=== PATIENT | female | born 1940 | race Caucasian/White ===

== ENCOUNTER → 2018-03-07 12:06 | Outpatient (CLI) | payer MEDICARE, SELFPAY ==
--- NOTE | 2018-03-07 10:00 | DI.MG.S_ITS ---
Patient Name: JANUSZ CONNOLLY date: 1940 Sex: F Attending Physician: Dorothea Indications: Date: 03/07/2018 12:29 At the request of: CHRISTINE HASSAN Procedure: MM screening mammo BI BILATERAL DIGITAL SCREENING MAMMOGRAM 3D/2D WITH CAD: 03/07/2018 CLINICAL: Routine screening. Comparison is made to exams dated: 06/17/2016 mammogram, 12/17/2014 mammogram, and 12/17/2013 mammogram - [facility]. The tissue of both breasts is predominantly fatty. Current study was also evaluated with a Computer Aided Detection (CAD) system. No new suspicious masses or architectural distortion. There are benign calcifications in both breasts. No significant masses, calcifications, or other findings are seen in either breast. There has been no significant interval change. IMPRESSION: There is no mammographic evidence of malignancy. A 1 year screening mammogram is recommended. This exam was interpreted at Station ID: [id number]. NOTE: For mammograms, a report in lay terms will be sent to the patient. Approximately 15% of breast malignancies will not be visualized mammographically. In the management of a palpable breast mass, a negative mammogram must not discourage biopsy of a clinically suspicious lesion. Electronically Signed By: Rakesh aleman/bethany:03/07/2018 22:07:46 letter sent: Normal Exam ACR BI-RADS Category 2: Benign Finding(s) 3342F
== END ==
PROVIDERS: PCP Family Medicine; Visit Provider Family Medicine
DX: Z12.31 Encounter for screening mammogram for malignant neoplasm of breast (principal); Z78.0 Asymptomatic menopausal state; Z90.722 Acquired absence of ovaries, bilateral; Z87.891 Personal history of nicotine dependence
CPT/HCPCS: 77063; 77067; 77080

== ENCOUNTER → 2021-01-13 12:40 | Outpatient (CLI) | payer MEDICARE, SELFPAY ==
--- NOTE | 2021-01-13 | DI.CT.S_ITS ---
PROCEDURE: CT CHEST WO CON INDICATIONS: Other nonspecific abnormal finding of lung field TECHNIQUE: Noncontrast 5 mm thick sections acquired from the pulmonary apices to the posterior costophrenic angles. 1 mm lung window, 5 mm thick coronal and sagittal and 7 mm axial MIP reformats were then acquired. For radiation dose reduction, the following was used: automated exposure control, adjustment of mA and/or kV according to patient size. Radiation dose: 79.6 mGycm. COMPARISON: [facility], CT, CT LOW DOSE LUNG CA SCREENING, 06/16/2018, 12:16. FINDINGS: Image quality: Excellent. Lungs and pleura: Small lung nodules are present. Nodule 1: 2 mm; right upper lobe, lateral; series 3, image 78; unchanged. Nodule 2: 2 mm; right upper lobe; anterior lateral; series 3, image 120; unchanged. Nodule 3: 2 mm; left lower lobe; series 3, image 164; unchanged. Mild emphysema. Left basilar atelectasis. No acute air space opacities. No pleural effusions or pneumothorax. Central and peripheral airways are patent and normal in caliber. Mediastinum: Heart size is normal. Mild coronary artery calcification. No pericardial effusion. No mediastinal adenopathy by size criteria. Thoracic aorta and central pulmonary arteries are normal in size. Esophagus is mildly distended. Small hiatal hernia. Bones and chest wall: No suspicious bony lesions. No vertebral body compression fractures. Degenerative changes in lower cervical spine, thoracic spine and upper lumbar spine. No axillary or supraclavicular adenopathy by size criteria. Thyroid gland is normal. Abdomen: Visualized upper abdominal solid organs and bowel loops appear normal in the absence of contrast. IMPRESSION: 1. Stable tiny lung nodules. ACR Lung rads category 2. Recommend annual screening lung CT in 12 months. 2. Mild centrilobular emphysema. 3. Mild distention of esophagus and small hiatal hernia. Double contrast esophagram is recommended for further evaluation. 4. Mild coronary artery calcification. Dictated by: Denise Evans M.D. on 01/13/2021 at 17:19 Approved by: Denise Evans M.D. on 01/14/2021 at 9:40
== END ==
PROVIDERS: PCP Family Medicine; Referring Provider Family Medicine; Visit Provider Family Medicine
DX: R91.8 Other nonspecific abnormal finding of lung field (principal); J43.2 Centrilobular emphysema; K44.9 Diaphragmatic hernia without obstruction or gangrene; I25.10 Atherosclerotic heart disease of native coronary artery without angina pectoris
CPT/HCPCS: 71250

== ENCOUNTER → 2021-02-05 12:49 | Outpatient (CLI) | payer MEDICARE, SELFPAY ==
--- NOTE | 2021-02-05 12:52 | DI.MG.S_ITS ---
BILATERAL DIGITAL SCREENING MAMMOGRAM 3D/2D WITH CAD: 02/05/2021 CLINICAL: Routine screening. Comparison is made to exams dated: 03/07/2018 mammogram - [facility], 06/17/2016 mammogram, and 12/17/2014 mammogram - [facility]. The tissue of both breasts is predominantly fatty. Current study was also evaluated with a Computer Aided Detection (CAD) system. There are benign calcifications in both breasts. No significant masses, calcifications, or other findings are seen in either breast. There has been no significant interval change. IMPRESSION: BENIGN There is no mammographic evidence of malignancy. A 1 year screening mammogram is recommended. This exam was interpreted at Station ID: [id number]. NOTE: For mammograms, a report in lay terms will be sent to the patient. Approximately 15% of breast malignancies will not be visualized mammographically. In the management of a palpable breast mass, a negative mammogram must not discourage biopsy of a clinically suspicious lesion. Electronically Signed By: Braydon Pavon acr/benrad:02/05/2021 15:38:57 letter sent: Normal Exam ACR BI-RADS Category 2: Benign Finding(s) 3342F
== END ==
PROVIDERS: PCP Family Medicine; Referring Provider Family Medicine; Visit Provider Family Medicine
DX: Z12.31 Encounter for screening mammogram for malignant neoplasm of breast (principal)
CPT/HCPCS: 77063; 77067

== ENCOUNTER → 2022-07-13 11:11 | Outpatient (CLI) | payer MEDICARE, SELFPAY ==
--- NOTE | 2022-07-13 | DI.CT.S_ITS ---
PROCEDURE: CT CHEST WO CON INDICATIONS: nonspecific abnormal finding of lung field TECHNIQUE: Noncontrast 5 mm thick sections acquired from the pulmonary apices to the posterior costophrenic angles. 1 mm lung window, 5 mm thick coronal and sagittal and 7 mm axial MIP reformats were then acquired. For radiation dose reduction, the following was used: automated exposure control, adjustment of mA and/or kV according to patient size. COMPARISON: [facility], CT, CT CHEST WO CON, 01/13/2021, 13:16. [facility], CT, CT LOW DOSE LUNG CA SCREENING, 06/16/2018, 12:16. FINDINGS: Image quality: Excellent. Lungs and pleura: Within the right lower lobe laterally, there is a poorly defined focus of soft tissue opacity seen that measures approximately 1 cm. Similar appearing opacity can be seen within the left upper lobe laterally, as on series 3, image 108. A band of likely atelectasis can be seen within the dependent left lower lobe. On the prior examination, there are described tiny 2 mm pulmonary nodules. These are not well seen on the current study. No suspicious pulmonary nodules are seen. The lungs otherwise appear clear. No pneumothorax or pleural effusions are seen. Mediastinum: Heart size is normal. No pericardial effusion. No mediastinal adenopathy by size criteria. Thoracic aorta and central pulmonary arteries are normal in size. Esophagus is normal in caliber. There is a small hiatal hernia. Bones and chest wall: No suspicious bony lesions. No vertebral body compression fractures. Age-appropriate bony degenerative changes are seen. Accentuated thoracic kyphosis is seen. No axillary or supraclavicular adenopathy by size criteria. Thyroid gland demonstrates no significant noncontrast abnormality. Abdomen: Visualized upper abdominal solid organs and bowel loops appear normal in the absence of contrast. IMPRESSION: Within the right lower lobe, there is a mild focus of poorly defined opacity with a milder focus of similar opacity seen within the right upper lobe. These foci are likely related to a mild amount of infectious or inflammatory change. While no specific imaging follow-up is recommended, attention should be paid to these foci on any future follow-up studies. No suspicious pulmonary nodules are seen. Additional findings: Small hiatal hernia Dictated by: Romeo Perez M.D. on 07/13/2022 at 14:39 Approved by: Romeo Perez M.D. on 07/13/2022 at 14:44
== END ==
PROVIDERS: PCP Family Medicine; Referring Provider Family Medicine; Visit Provider Family Medicine
DX: R91.8 Other nonspecific abnormal finding of lung field (principal); K44.9 Diaphragmatic hernia without obstruction or gangrene
CPT/HCPCS: 71250

== ENCOUNTER 2023-05-20 18:06 | Emergency (ER) | payer MEDICARE, SELFPAY ==
[2023-05-20] VITALS (15 sets, daily range): BP systolic 149–191; BP diastolic 70–92; PULSE 61–80; RESP 18; TEMP 36.7; O2SAT 96–99; BMI 22.3
--- NOTE | 2023-05-20 18:25 | DI.CT.S_ITS ---
PROCEDURE: CT HEAD/BRAIN WO CON INDICATIONS: balance issue TECHNIQUE: Noncontrast 4.5 mm thick angled axial sections acquired from the foramen magnum to the vertex, with coronal and sagittal reformats. For radiation dose reduction, the following was used: automated exposure control, adjustment of mA and/or kV according to patient size. COMPARISON: None. FINDINGS: Image quality: Diagnostic. CSF spaces: Basal cisterns are patent. No extra-axial fluid collections. The ventricles are symmetric in size and shape. Brain: No intracranial bleeds or masses. There is cerebral volume loss for age, with resultant ventricular and sulcal prominence. There are periventricular and deep white matter chronic small vessel ischemic changes. There is intracranial internal carotid artery atherosclerosis. Skull and face: Calvarium and visualized facial bones appear intact, without suspicious lesions. Sinuses: Visualized sinuses and mastoids are clear. IMPRESSION: No acute intracranial pathology. Dictated by: Jefferson Meeks M.D. on 05/20/2023 at 19:53 Approved by: Jefferson Meeks M.D. on 05/20/2023 at 19:54
--- NOTE | 2023-05-20 18:27 | DI.CT.S_ITS ---
PROCEDURE: CT ANGIO HEAD AND NECK INDICATIONS: balance issue TECHNIQUE: After the administration of intravenous contrast, 1 mm thick sections acquired from the aortic arch through the [place] of [place]. 3-dimensional fuzwuoi-lnskdnvaq-eulqykzlxe (MIP) and/or volume rendering reformats were acquired of the central intracranial vasculature and neck separately. For radiation dose reduction, the following was used: automated exposure control, adjustment of mA and/or kV according to patient size. COMPARISON: None. FINDINGS: Image quality: Diagnostic. BRAIN: Please refer to same day CT of the head. HEAD CT ANGIOGRAPHY: Anterior circulation: Intracranial internal carotid arteries are normal in size and flow. The flow within the paired anterior cerebral arteries is normal and symmetric. The flow within the middle cerebral arteries is normal and symmetric. The anterior communicating artery is seen. No aneurysms are seen. Posterior circulation: Atherosclerotic calcifications of the vertebral arteries with moderate stenosis of the distal right V4 segment. The vertebral arteries join join to form a normal appearing basilar artery. Flow within the posterior cerebral arteries is normal and symmetric. No aneurysms are seen. NECK CT ANGIOGRAPHY: Carotid system: The great vessels demonstrate a conventional anatomy as they arise from the aortic arch. The origins of the common carotid arteries appear patent. The common carotid arteries demonstrate normal caliber and courses. The bifurcation regions are both widely patent. The internal carotid arteries demonstrate normal calibers and courses. Posterior circulation: The origins of the vertebral arteries both appear widely patent. The more superior extracranial portions of both vertebral arteries also demonstrate normal courses and calibers. They join to form a normal appearing basilar artery. Soft tissues: Visualized neck soft tissues demonstrate no suspicious abnormalities. Bones: No suspicious bony lesions. Degenerative changes of the spine. Visualized cervical spine appears normally aligned. IMPRESSION: No significant intracranial arterial abnormality is seen. No significant abnormality is seen within the arteries of the neck. Any quantitative measurements of stenosis were performed using NASCET criteria. Dictated by: Jefferson Meeks M.D. on 05/20/2023 at 20:04 Approved by: Jefferson Meeks M.D. on 05/20/2023 at 20:08
[2023-05-20 19:33] LABS: Add Manual Diff / Slide Review NO; Basophils Absolute Auto 0 /uL (0-100); Basophils Percent Auto 0.6 % (0-2); Eosinophils Absolute Auto 300 /uL (0-450); Eosinophils Percent Auto 5.7 % (2-4); Hematocrit 40.4 % (36-46); Hemoglobin 13.3 g/dL (12.0-16.0); Lymphocytes Absolute Auto 2100 /uL (1100-4500); Lymphocytes Percent Auto 35.1 % (25-40); Mean Corpuscular Hemoglobin 29.2 PG (26-34); Mean Corpuscular Volume 88.5 fL (80-100); Monocytes Absolute Auto 500 /uL (0-900); Monocytes Percent Auto 9.1 % (3-14); Neutrophils Absolute Auto 2900 /uL (1500-7000); Neutrophils Percent Auto 49.5 % (50-75); Platelet Count 213 X10^3/uL (150-400); Red Blood Cell Count 4.56 X10^6/uL (4.0-5.2); Red Cell Distribution Width 13.4 % (11.6-14.8); White Blood Cell Count 5.9 X10^3/uL (4.5-11.0)
[2023-05-20 19:37] LABS: PTT Partial Thromboplastin Tim 42 SECONDS (25.1-36.5)
[2023-05-20 19:40] LABS: Alanine Aminotransferase 15 IU/L (<35); Albumin 4.1 g/dL (3.5-5.0); Albumin Globulin Ratio 1.5 (1.0-2.8); Alkaline Phosphatase 100 U/L (38-126); Aspartate Aminotransferase 25 IU/L (14-36); Bilirubin Total 0.4 mg/dL (0.2-1.3); Blood Urea Nitrogen 11 mg/dL (7-17); Calcium 9.2 mg/dL (8.4-10.2); Carbon Dioxide 26 mmol/L (22-32); Chloride 109 mmol/L (98-107); Creatine Kinase 56 U/L (30-135); Estimated Glomerular Filt Rate > 60 mL/min (>60); Ethanol (ETOH) < 10 mg/dL; Globulin 2.8 g/dL (1.7-4.1); Glucose 89 mg/dL (80-110); HEMOLYSIS < 15 (0-50); Potassium 3.9 mmol/L (3.4-5.1); Sodium 140 mmol/L (137-145); Total Protein 6.9 g/dL (6.3-8.2)
[2023-05-20 19:50] LABS: Troponin I < 0.012 ng/mL (0.01-0.034)
[2023-05-20 19:59] LABS: Appearance Urine UA CLEAR; Bilirubin Urine UA NEGATIVE (NEGATIVE); Color Urine UA YELLOW; Glucose Urine UA NEGATIVE (Negative); Ketones Urine UA NEGATIVE (NEGATIVE); Leukocyte Esterase Urine UA NEGATIVE (NEGATIVE); Nitrite Urine UA NEGATIVE (Negative); Occult Blood Urine UA NEGATIVE (Negative); Protein Urine UA NEGATIVE (Negative); Specific Gravity Urine UA <=1.005 (1.000-1.035); Urobilinogen Urine UA 0.2 E.U./dL (0.2)
[2023-05-20 20:03] LABS: UR Morphine/Opiate cutoff 300 Negative (Negative); Ur Creatinine Normal (Normal); Ur Specific Gravity Normal (Normal); Urine Amphetamines Negative (Negative); Urine Barbiturates Negative (Negative); Urine Benzodiazepines Negative (Negative); Urine Cocaine Negative (Negative); Urine MDMA Negative (Negative); Urine Methadone Negative (Negative); Urine Methamphetamines Negative (Negative); Urine Oxycodone Negative (Negative); Urine Phencyclidine Negative (Negative); Urine Tetrahydrocannabinol Negative (Negative); Urine Tricyclic Antidepressant Negative (Negative); Urine pH Normal (Normal)
[2023-05-20 20:09] LABS: COVID19 -Nasal RAPID Negative (Negative)
[2023-05-20 20:19] LABS: Bacteria Urine None Seen; Culture Indicated Urine Cult Not Indicated; RBC Urine None Seen (0-5/HPF); Squamous Epithelial Cell Urine None Seen (0-5/HPF); Urine Volume 10mL (spun); WBC Urine None Seen (0-5/HPF)
--- NOTE | 2023-05-20 21:41 | PC.NURSE ---
son at bedside. Pt is eating some dinner brought by son. Verbalized understanding of delay d/t increased acuity and numbers in ER, denied any needs at this time. Pt and son very cooperative and understanding with staff. No signs of neurological deficits at this time, AAOx4, PERRLA 3mm bilat. sensation and strength equal and intact. No distress noted at this time.
--- NOTE | 2023-05-20 23:42 | ED.NEUROSD ---
HPI - Neuro Symptoms/Deficit General Chief Complaint: Neuro Symptoms/Deficit Stated Complaint: dr ref/lack of balance Time Seen by Provider: 05/20/23 23:15 Source: patient Mode of arrival: Ambulatory History of Present Illness HPI Narrative: Patient is an 82-year-old very healthy female presenting today with balance issues. She reports the last 1 week she is felt quite right she can not put her finger on it. 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 She reports that she thought she was leaning maybe to the left today is an obviously leaning now. She was at a clothing retail shop trying to put on pants. She was standing and trying to balance and with 1 leg and put a leg through the pants. She felt like she was off balance and could not quite do it. Abnormal for her. She went to her PCP office he was half a block away from the shop. It was recommended that she come to the ED for further evaluation. She has been ambulatory she is driving. She reports this kind of not well feeling for about 1 week but really started some word kind of balance stuff today. She has no obvious deficits she is not falling when she is walking to the restroom in the ED. She denies numbness tingling or weakness. No speech or vision deficit. She denies any chest pain or palpitations. No fever chills cough or any other symptoms. On Anticoagulants: No Related Data Previous Rx's Medication Instructions Recorded acetaminophen 300 mg-codeine 15 mg 1 tab PO SEE INSTRUCTIONS #30 tabs 05/12/16 tablet azithromycin 250 mg tablet 250 mg PO SEE INSTRUCTIONS #6 tabs 05/12/16 (Zithromax Z-Javier) Allergies Allergy/AdvReac Type Severity Reaction Status Date / Time No Known Drug Allergies Allergy Verified 05/20/23 18:13 Review of Systems Hematologic/Lymphatic On Anticoagulants: No Patient History Surgical History History of hip replacement Status post hysterectomy Social History Smoking Status: Current every day smoker Smoking Status: Current every day smoker tobacco type: cigarettes alcohol intake frequency: 0-2 drinks per day Alcohol type: wine Substance Use Type: does not use Exam Initial Vital Signs Initial Vital Signs: Vital Signs Temperature 98.0 F 05/20/23 18:15 Pulse Rate 76 05/20/23 18:15 Respiratory Rate 18 05/20/23 18:15 Blood Pressure 189/83 H 05/20/23 18:15 GENERAL: Alert very pleasant 82-year-old female and in no acute distress. HEENT: Head atraumatic,EOMI, pupils reactive, face symmetric, moist mucous membranes CARDIOVASCULAR: Regular rate and rhythm without murmurs, rubs or gallops. RESPIRATORY: Breath sounds equal bilaterally, no wheezes rales or rhonchi. ABDOMEN: Soft, nontender. Normoactive bowel sounds all 4 quadrants. No guarding or rebound. EXTREMITIES: Normal range of motion, no clubbing or edema. Neurovascularly intact NEUROLOGICAL: Alert and oriented x4.Normal gait and speech. Cranial nerves II through XII grossly intact. Good [id number], good [id number], strength equal bilaterally, no dysarthria or aphasia, sensation in tact to soft touch bilaterally, no visual changes, no facial droop SKIN: Warm, dry, no laceration, no petechiae, no rashes or lesions. Scores NIH Stroke Scale Level of Conciousness: Alert, keenly responsive Ask month/age: Answers both questions correctly. Open/close eyes, close hand: Performs both tasks correctly Best gaze horizontal: Normal Visual luis: No visual loss Facial palsy: Normal symetrical movement Left arm drift: No drift for full 10 sec Right arm drift: No drift for full 10 sec Left leg drift: No drift for full 5 sec Right leg drift: No drift for full 5 sec Limb ataxia: Absent Sensory on face/arms/legs: Normal, no sensory loss Best language: No aphasia, normal Dysarthria: Normal Extinction or inattention: No abnormality Total NIH Stroke scale score: 0 Course Orders Ordered: ED Orders 05/20/23 19:48 COVID19 -Nasal RAPID Stat Urinalysis and Microscopic Stat Urine Drug Screen, Rapid Stat Discontinued Medications Lisinopril (Lisinopril 5 Mg Tablet) 5 mg PO NOW ONE Stop: 05/21/23 00:16 Last Admin: 05/21/23 00:23 Dose: 5 mg Documented By: SB Vital Signs Vital signs: Vital Signs - 8 hr 05/20/23 20:30 05/20/23 20:30 05/20/23 21:00 Pulse Rate 62 62 Blood Pressure 191/90 H Pulse Oximetry 96 98 Oxygen Delivery Method 05/20/23 21:30 05/20/23 21:59 05/20/23 21:59 Pulse Rate 70 70 Blood Pressure 187/85 H Pulse Oximetry 96 96 Oxygen Delivery Method Room Air 05/20/23 22:00 05/20/23 22:30 05/20/23 22:38 Pulse Rate 68 62 66 Blood Pressure Pulse Oximetry 97 97 Oxygen Delivery Method Room Air 05/20/23 22:38 05/20/23 23:00 05/20/23 23:00 Pulse Rate 66 Blood Pressure 171/79 H 157/70 H Pulse Oximetry 98 Oxygen Delivery Method 05/20/23 23:30 05/20/23 23:30 05/21/23 00:09 Pulse Rate 68 66 Blood Pressure 178/81 H Pulse Oximetry 97 97 Oxygen Delivery Method 05/21/23 00:10 05/21/23 00:10 05/21/23 00:23 Pulse Rate 65 Blood Pressure 182/98 H 182/98 H Pulse Oximetry 97 Oxygen Delivery Method Room Air MDM - Neuro Symptoms/Deficit Lab Data 05/20/23 19:12 05/20/23 19:12 Labs: Lab Results 05/20/23 05/20/23 05/20/23 Range/Units 19:12 19:48 19:48 WBC 5.9 (4.5-11.0) X10^3/uL RBC 4.56 (4.0-5.2) X10^6/uL Hgb 13.3 (12.0-16.0) g/dL Hct 40.4 (36-46) % MCV 88.5 (80-100) fL MCH 29.2 (26-34) PG MCHC 33.0 (30-36) % RDW 13.4 (11.6-14.8) % Plt Count 213 (150-400) X10^3/uL Neut % (Auto) 49.5 L (50-75) % Lymph % (Auto) 35.1 (25-40) % [place] % (Auto) 9.1 (3-14) % Eos % (Auto) 5.7 H (2-4) % Baso % (Auto) 0.6 (0-2) % Neut # (Auto) 2900 (6057-3667) /uL Lymph # (Auto) 2100 (8819-1893) /uL [place] # (Auto) 500 (0-900) /uL Eos # (Auto) 300 (0-450) /uL Baso # (Auto) 0 (0-100) /uL PT 11.0 (9.4-12.5) SECONDS INR 1.0 (0.9-1.3) APTT 42 H (25.1-36.5) SECONDS Sodium 140 (137-145) mmol/L Potassium 3.9 (3.4-5.1) mmol/L Chloride 109 H (98-107) mmol/L Carbon Dioxide 26 (22-32) mmol/L BUN 11 (7-17) mg/dL Creatinine 0.55 (0.52-1.04) mg/dL Estimated GFR > 60 (>60) mL/min BUN/Creatinine Ratio 20.0 (6-22) Glucose 89 (80-110) mg/dL Calcium 9.2 (8.4-10.2) mg/dL Total Bilirubin 0.4 (0.2-1.3) mg/dL AST 25 (14-36) IU/L ALT 15 (<35) IU/L Alkaline Phosphatase 100 (38-126) U/L Total Creatine Kinase 56 (30-135) U/L Troponin I < 0.012 (0.01-0.034) ng/mL Total Protein 6.9 (6.3-8.2) g/dL Albumin 4.1 (3.5-5.0) g/dL Globulin 2.8 (1.7-4.1) g/dL Albumin/Globulin Ratio 1.5 (1.0-2.8) Urine Color Yellow Urine Appearance Clear Urine pH 6.0 Normal (4.5-8.0) Ur Specific [place] <=1.005 (1.000-1.035) Urine Protein Negative (Negative) Urine Glucose (UA) Negative (Negative) g/dL Urine Ketones Negative (NEGATIVE) Urine Occult Blood Negative (Negative) Urine Nitrate Negative (Negative) Urine Bilirubin Negative (NEGATIVE) Urine Urobilinogen 0.2 (0.2) E.U./dL Ur Leukocyte Esterase Negative (NEGATIVE) Urine RBC None seen (0-5/HPF) Urine WBC None seen (0-5/HPF) Ur Squamous Epith Cells None seen (0-5/HPF) Urine Bacteria None seen (None) Ur Culture Indicated? Cult not indicated Vol Urine Centrifuged 10ml (spun) U Opiates 300ng/mL cut Negative (Negative) Ur Oxycodone Screen Negative (Negative) Urine Methadone Screen Negative (Negative) Ur Barbiturates Screen Negative (Negative) U Tricyclic Antidepress Negative (Negative) Ur Phencyclidine Scrn Negative (Negative) Ur Amphetamines Screen Negative (Negative) U Methamphetamines Scrn Negative (Negative) Ur MDMA Scrn (Ecstasy) Negative (Negative) U Benzodiazepines Scrn Negative (Negative) Urine Cocaine Screen Negative (Negative) U Marijuana (THC) Screen Negative (Negative) Urine Specific [place] Normal (Normal) Ethyl Alcohol < 10 ( - 10) mg/dL Ur Creatinine Normal (Normal) SARS-CoV-2 (PCR) Negative (Negative) Imaging Data CT scan - head: Radiologist's Impression: PROCEDURE: CT HEAD/BRAIN WO CON INDICATIONS: balance issue TECHNIQUE: Noncontrast 4.5 mm thick angled axial sections acquired from the foramen magnum to the vertex, with coronal and sagittal reformats. For radiation dose reduction, the following was used: automated exposure control, adjustment of mA and/or kV according to patient size. COMPARISON: None. FINDINGS: Image quality: Diagnostic. CSF spaces: Basal cisterns are patent. No extra-axial fluid collections. The ventricles are symmetric in size and shape. Brain: No intracranial bleeds or masses. There is cerebral volume loss for age, with resultant ventricular and sulcal prominence. There are periventricular and deep white matter chronic small vessel ischemic changes. There is intracranial internal carotid artery atherosclerosis. Skull and face: Calvarium and visualized facial bones appear intact, without suspicious lesions. Sinuses: Visualized sinuses and mastoids are clear. IMPRESSION: No acute intracranial pathology. Dictated by: Jefferson Meeks M.D. on 05/20/2023 at 19:53 CTA - brain/neck: Radiologist's Impression: PROCEDURE: CT ANGIO HEAD AND NECK INDICATIONS: balance issue TECHNIQUE: After the administration of intravenous contrast, 1 mm thick sections acquired from the aortic arch through the [place] of [place]. 3-dimensional vwiodnh-baquxucnn-azaloculms (MIP) and/or volume rendering reformats were acquired of the central intracranial vasculature and neck separately. For radiation dose reduction, the following was used: automated exposure control, adjustment of mA and/or kV according to patient size. COMPARISON: None. FINDINGS: Image quality: Diagnostic. BRAIN: Please refer to same day CT of the head. HEAD CT ANGIOGRAPHY: Anterior circulation: Intracranial internal carotid arteries are normal in size and flow. The flow within the paired anterior cerebral arteries is normal and symmetric. The flow within the middle cerebral arteries is normal and symmetric. The anterior communicating artery is seen. No aneurysms are seen. Posterior circulation: Atherosclerotic calcifications of the vertebral arteries with moderate stenosis of the distal right V4 segment. The vertebral arteries join join to form a normal appearing basilar artery. Flow within the posterior cerebral arteries is normal and symmetric. No aneurysms are seen. NECK CT ANGIOGRAPHY: Carotid system: The great vessels demonstrate a conventional anatomy as they arise from the aortic arch. The origins of the common carotid arteries appear patent. The common carotid arteries demonstrate normal caliber and courses. The bifurcation regions are both widely patent. The internal carotid arteries demonstrate normal calibers and courses. Posterior circulation: The origins of the vertebral arteries both appear widely patent. The more superior extracranial portions of both vertebral arteries also demonstrate normal courses and calibers. They join to form a normal appearing basilar artery. Soft tissues: Visualized neck soft tissues demonstrate no suspicious abnormalities. Bones: No suspicious bony lesions. Degenerative changes of the spine. Visualized cervical spine appears normally aligned. IMPRESSION: No significant intracranial arterial abnormality is seen. No significant abnormality is seen within the arteries of the neck. Any quantitative measurements of stenosis were performed using NASCET criteria. Dictated by: Jefferson Meeks M.D. on 05/20/2023 at 20:04 ECG Data Attestation: I personally reviewed and interpreted this ECG as follows: Interpretation: Low voltage sinus rhythm rate 63 [place] interval 160 QRS [address] changes no priors to compare MDM Narrative Medical decision making narrative: [facility] CC: Balance issues not feeling right Complicating co-morbidities: None Differential considered: TIA, CVA, electrolyte abnormality, infection Exam documented above, pertinent findings include: Negative Romberg test, NIH stroke scale 0 ambulating in the ED without any sort of difficulty Lab Test results independently reviewed as above. Pertinent findings: No clinical significant abnormalities Independently reviewed EKG as above Imaging studies independently reviewed: Head CT CT angio no abnormalities Consultations: None Treatments: None Re-evaluations: [ ] Discussion: Patient presents today with feeling off for the last week but no obvious reason why. No infection. Urinalysis is negative. She feels like she might be leaning to 1 side today and had trouble standing on 1 ft balancing get putting on some pants today. No real obvious focal deficits. She is ambulating easily in the ED without ataxia or other problems. Symptoms are not really specific course stroke or TIA. She has no risk factors. At this time recommend outpatient workup. No need to stay in the hospital. Discharge Plan Departure Patient Disposition: Home Clinical Impression: Weakness Instructions: DI for Muscle Weakness Activity Restrictions/Additional Instructions: *You have been diagnosed with weakness *What to do: At this time there is no real evidence of stroke or infection. I do recommend continued outpatient follow-up with PCP. May or may not require more testing. *Continue to take medications as directed *Follow up with your primary care provider in 2-3 days or call [phone] *Return to ER if you should have facial droop difficulty speaking weakness on 1 side or any new, worsening or concerning symptoms Prescriptions: No Action azithromycin [Zithromax Z-Javier] 250 MG tablet 250 mg PO SEE INSTRUCTIONS Qty: 6 0RF acetaminophen-codeine 15 MG/300 MG tablet 1 tab PO SEE INSTRUCTIONS Qty: 30 1RF Referrals: Marisol Piedra MD [Primary Care Provider] - Stand Alone Forms: Patient Portal/API
[2023-05-21 00:09] VITALS: PULSE 66; O2SAT 97
[2023-05-21 00:10] VITALS: BP 182/98; PULSE 65; O2SAT 97
[2023-05-21 00:23] VITALS: BP 182/98
[2023-05-21] MEDS: lisinopriL 5 MG TABLET PO (00:23)
== END 2023-05-21 00:26 | disposition home or self-care (01) ==
PROVIDERS: Emergency Provider Emergency Medicine; PCP Family Medicine
DX: M62.81 Muscle weakness (generalized) (principal); R26.81 Unsteadiness on feet; R07.9 Chest pain, unspecified; Z20.822 Contact with and (suspected) exposure to COVID-19
CPT/HCPCS: 36415; 70450; 70496; 70498; 80053; 80305; 80320; 81001; 82550; 84484; 85025; 85610; 85730; 87635; 93005; 99284; Q9967

== ENCOUNTER → 2023-09-15 07:53 | Outpatient (CLI) | payer MEDICARE, SELFPAY ==
--- NOTE | 2023-09-15 07:54 | DI.US.S_ITS ---
PROCEDURE: US ABDOMEN LIMITED INDICATIONS: RIGHT UPPER QUADRANT PAIN TECHNIQUE: Real-time scanning was performed of the abdominal and retroperitoneal organs, with image documentation. COMPARISON: None. FINDINGS: Liver: Liver is normal in size and homogeneous in echotexture. Gallbladder: Multiple mobile gallstones. No wall thickening or pericholecystic fluid. Wall thickness is 1.6 mm. Biliary ducts: Intrahepatic bile ducts are non-dilated. Extrahepatic bile duct caliber measures 4.5 mm. Normal is 6-7 mm or less in diameter, or 10 mm or less post-cholecystectomy. Pancreas: Visualized portions of the pancreas are sonographically normal. IMPRESSION: Cholelithiasis without acute cholecystitis. No intra or extrahepatic biliary ductal dilatation. Dictated by: Barber Moss M.D. on 09/15/2023 at 21:22 Approved by: Barber Moss M.D. on 09/15/2023 at 21:23
--- NOTE | 2023-09-15 07:55 | DI.CT.S_ITS ---
PROCEDURE: CT CHEST WO CON INDICATIONS: Nodules TECHNIQUE: Noncontrast 5 mm thick sections acquired from the pulmonary apices to the posterior costophrenic angles. 1 mm lung window, 5 mm thick coronal and sagittal and 7 mm axial MIP reformats were then acquired. For radiation dose reduction, the following was used: automated exposure control, adjustment of mA and/or kV according to patient size. COMPARISON: [facility], CT, CT CHEST WO [facility], 07/13/2022, 11:27. FINDINGS: Image quality: Diagnostic. Lungs: Mild tree-in-bud opacity with scattered adjacent centrilobular micro nodules in the right upper lobe (3: 104), likely representing inflammatory versus infectious etiology, unchanged from prior exam. Previously seen small area of patchy consolidation in the right lower lobe, has mostly resolved (3:203). Interval development of 2 small pulmonary nodules adjacent to each other in the right upper lobe, with the larger 1 measuring 4 mm (series 3, image 58). Mild atelectasis in the left lower lobe. No pleural effusion pneumothorax. No pulmonary edema or focal consolidation. Soft tissue/mediastinum: Mild calcification of the thoracic aorta. No thoracic aortic aneurysm. Heart is normal in size. No pericardial effusion. Mild coronary artery calcification. No mediastinal, hilar, or axillary lymphadenopathy. Upper abdomen: Unremarkable Bones: Multilevel, moderate degenerative disease of the thoracic spine. IMPRESSION: 1. Previously seen small focus of patchy consolidation in the right lower lobe has mostly resolved, representing inflammatory versus infectious etiology. 2. Additional mild inflammatory versus infectious etiology in the right upper lobe, unchanged. 3. Interval development of 2 sub 5 mm pulmonary nodule in the right upper lobe. Recommend six-month follow-up CT. Dictated by: Abena Ferreira M.D. on 09/15/2023 at 12:20 Approved by: Abena Ferreira M.D. on 09/15/2023 at 12:37
== END ==
LOC: US 07:54
PROVIDERS: PCP Family Medicine; Referring Provider Family Medicine; Visit Provider Family Medicine
DX: K80.20 Calculus of gallbladder without cholecystitis without obstruction (principal); R10.12 Left upper quadrant pain; R91.8 Other nonspecific abnormal finding of lung field
CPT/HCPCS: 71250; 76705

== ENCOUNTER → 2023-10-26 12:04 | Outpatient (CLI) | payer MEDICARE, SELFPAY ==
--- NOTE | 2023-10-26 12:05 | DI.MRI.S_ITS ---
PROCEDURE: MR HEAD/BRAIN WO CON INDICATIONS: ATAXIA TECHNIQUE: Non-contrast axial T1 spin echo, axial T2 fast spin echo, sagittal and axial FLAIR, coronal T2 fast spin echo, axial gradient echo, axial diffusion and ADC through the brain. COMPARISON: None. FINDINGS: Image quality: Excellent. CSF spaces: Ventricles appear symmetric in size and shape. Basal cisterns are patent. No extra-axial fluid collections. Brain: No intracranial bleeds or mass effects. There is cerebral volume loss for age. There are periventricular and deep white matter chronic small vessel ischemic changes. Brainstem appears normal. Diffusion-weighted images show no acute infarct. No chronic ischemic insults. Normal intravascular flow voids are present. Relatively prominent perivascular spaces are noted. Skull and face: Calvarial bone marrow is normal in signal. Orbits are normal. Note is made of bilateral lens replacements. Sinuses: Mild scattered mucosal thickening can be seen within the paranasal sinuses. No abnormal fluid is seen within the mastoid air cells. IMPRESSION: No imaging explanation is found for this patient's presenting symptoms. No findings of acute or subacute infarction can be seen. No prior territorial infarct can be seen. To the limits of this noncontrast study, no findings of intracranial masses or mass effect can be seen. Dictated by: Romeo Perez M.D. on 10/26/2023 at 13:00 Approved by: Romeo Perez M.D. on 10/26/2023 at 13:01
== END ==
PROVIDERS: PCP Family Medicine; Referring Provider Family Medicine; Visit Provider Family Medicine
DX: R27.0 Ataxia, unspecified (principal)
CPT/HCPCS: 70551

== ENCOUNTER → 2024-01-04 10:44 | Outpatient (CLI) | payer MEDICARE, SELFPAY ==
--- NOTE | 2024-01-04 10:46 | DI.CT.S_ITS ---
PROCEDURE: CT ABDOMEN PELVIS W CON INDICATIONS: NON HEALING GASTRIC ULCER,R/O MALIGNANCY TECHNIQUE: After the administration of intravenous contrast, axial sections acquired from the lung bases to the pubic symphysis. Coronal and sagittal reformats were performed. For radiation dose reduction, the following was used: automated exposure control, adjustment of mA and/or kV according to patient size. COMPARISON: [facility], CT, CT CHEST WO CON, 09/15/2023, 8:26. FINDINGS: Image quality: Diagnostic. Lower Chest: Branching nodularity in the right lower lung zone, progressed in size compared with 09/15/2023. Severe lower esophageal wall thickening ABDOMEN: Liver: No solid mass. Gallbladder: Cholelithiasis without wall thickening or adjacent fat stranding to suggest acute cholecystitis. Biliary ducts: No biliary dilation. Pancreas: No ductal dilation. Spleen: Size is within normal limits. Adrenal Glands: No adrenal nodules. Kidneys and Ureters: No hydronephrosis. No solid mass. No complex renal cystic lesion which requires follow up. Stomach and Bowel: Diffuse wall thickening of the sigmoid colon, in the presence of diverticula. No pericolonic fat stranding. No gastric ulcer identified. Peritoneum: No abnormal intraperitoneal fluid. No free air. Ventral Wall: No significant ventral hernia. Abdominal Nodes: No retroperitoneal or mesenteric adenopathy by size criteria. Vessels: Aorta and inferior vena cava are normal in size. PELVIS: Pelvic Organs: Unremarkable. Bladder: No bladder wall thickening, accounting for underdistention. Pelvic Nodes: No enlarged lymph nodes. Miscellaneous: No inguinal hernias are seen. Bones: No aggressive osseous abnormality. Hip arthroplasties. IMPRESSION: No gastric ulcer identified, although evaluation by CT is not sensitive for the detection a non perforated ulcer. Severe lower esophageal wall thickening, concerning for esophagitis. Cholelithiasis without wall thickening or adjacent fat stranding to suggest acute cholecystitis. Wall thickening of the sigmoid colon, in the presence of diverticula. No pericolonic fat stranding. Findings suggest chronic diverticulitis, less likely malignancy. Recommend direct visualization if not up-to-date on colonoscopy. Growing branching nodularity in the right lower lung compared with 09/15/2023. Findings probably represent an indolent infectious or inflammatory bronchiolitis. Recommend six-month follow-up with low-dose chest CT. Dictated by: Mac Trujillo M.D. on 01/04/2024 at 13:37 Approved by: Mac Trujillo M.D. on 01/04/2024 at 13:42
== END ==
PROVIDERS: PCP Family Medicine; Referring Provider Internal Medicine Gastroenterology; Visit Provider Internal Medicine Gastroenterology
DX: K25.7 Chronic gastric ulcer without hemorrhage or perforation (principal); K31.89 Other diseases of stomach and duodenum; K80.20 Calculus of gallbladder without cholecystitis without obstruction; K57.30 Diverticulosis of large intestine without perforation or abscess without bleeding; R91.8 Other nonspecific abnormal finding of lung field
CPT/HCPCS: 74177; Q9967

== ENCOUNTER → 2024-02-08 11:30 | Outpatient (CLI) | payer MEDICARE, SELFPAY ==
--- NOTE | 2024-02-08 11:32 | DI.MG.S_ITS ---
BILATERAL DIGITAL SCREENING MAMMOGRAM 3D/2D WITH CAD: 02/08/2024 CLINICAL: Routine screening. Family history of breast cancer. Comparison is made to exams dated: 02/05/2021 mammogram, 03/07/2018 mammogram - [facility], and 06/17/2016 mammogram - [facility]. The breasts are heterogeneously dense, which may obscure small masses (category c / 51-75% glandular tissue). Current study was also evaluated with a Computer Aided Detection (CAD) system. There are benign calcifications in both breasts. No significant masses, calcifications, or other findings are seen in either breast. There has been no significant interval change. IMPRESSION: BENIGN There is no mammographic evidence of malignancy. A 1 year screening mammogram is recommended. Based on the Tyrer Cuzick model (a risk assessment model) the patient's lifetime risk is 1.9% and her 10 year risk is 0.0%. According to the ACR, ACS, and NCCN guidelines, an annual breast MRI exam along with mammogram is recommended if the patient's lifetime risk is 20% or greater. This exam was interpreted at Station ID: [id number]. NOTE: For mammograms, a report in lay terms will be sent to the patient. Approximately 15% of breast malignancies will not be visualized mammographically. In the management of a palpable breast mass, a negative mammogram must not discourage biopsy of a clinically suspicious lesion. Electronically Signed By: Aysha capellan/bethany:02/08/2024 13:44:51 letter sent: Normal Exam ACR BI-RADS Category 2: Benign
== END ==
PROVIDERS: PCP Family Medicine; Referring Provider Family Medicine; Visit Provider Family Medicine
DX: Z12.31 Encounter for screening mammogram for malignant neoplasm of breast (principal); Z80.3 Family history of malignant neoplasm of breast; R92.333 Mammographic heterogeneous density, bilateral breasts
CPT/HCPCS: 77063; 77067

== ENCOUNTER → 2024-08-06 10:58 | Outpatient (CLI) | payer MEDICARE, SELFPAY ==
--- NOTE | 2024-08-06 11:00 | DI.CT.S_ITS ---
PROCEDURE: CT CHEST WO CON INDICATIONS: Follow up right lower lobe tree-in-bud nodule TECHNIQUE: Noncontrast 5 mm thick sections acquired from the pulmonary apices to the posterior costophrenic angles. 1 mm lung window, 5 mm thick coronal and sagittal and 7 mm axial MIP reformats were then acquired. For radiation dose reduction, the following was used: automated exposure control, adjustment of mA and/or kV according to patient size. COMPARISON: [facility], CT, CT CHEST WO CON, 09/15/2023, 8:26. [facility], CT, CT CHEST WO CON, 07/13/2022, 11:27. FINDINGS: Image quality: Diagnostic. Lower Neck: No enlarged lymph nodes. Thyroid: No thyroid nodules which require sonographic follow up, per consensus guidelines. Axillae: No enlarged lymph nodes. Chest Wall: Unremarkable. Bones: Unremarkable. Lungs and Pleura: No pneumothorax or pleural effusions. No focal consolidation. No new suspicious or enlarging pulmonary nodules. A few persistent faint tree-in-bud opacities are noted peripherally in the right upper lobe and right lower lobe. Overall, findings appear stable to less prominent. No new areas of tree-in-bud opacities. No septal thickening or nodularity. Visualized airways are clear. Stable appearance of mild curvilinear lower lobe atelectasis versus scarring. Previously described small sub 5 mm right upper lobe nodules are not appreciated on today's exam. Heart: Heart size is normal. No pericardial effusion. Coronary atherosclerotic vascular calcifications are noted. Thoracic Vessels: The aorta and pulmonary arteries demonstrate normal size. Atherosclerotic calcifications of the aortic arch are present. No significant neuroforaminal or spinal canal stenosis. Mediastinum and Hanh: No enlarged lymph nodes. Esophagus: No wall thickening. Small hiatal hernia. Upper Abdomen: Visualized upper abdomen solid organs and bowel loops appear normal. IMPRESSION: 1. Stable to decreased prominence of a few persistent faint peripheral tree-in-bud opacities of the right upper and lower lobes. Findings are most likely related to an infectious or inflammatory process. No new consolidations. No new suspicious or enlarging pulmonary nodules. 2. Previously described two sub 5 mm right upper lobe pulmonary nodules are not appreciated on today's examination and likely represent resolved infectious or inflammatory nodules. Other chronic findings as above. Dictated by: Rakesh Baez M.D. on 08/07/2024 at 2:38 Approved by: Rakesh Baez M.D. on 08/07/2024 at 2:49
== END ==
PROVIDERS: PCP Family Medicine; Referring Provider Family Medicine; Visit Provider Internal Medicine
DX: R91.8 Other nonspecific abnormal finding of lung field (principal); I25.10 Atherosclerotic heart disease of native coronary artery without angina pectoris; I70.0 Atherosclerosis of aorta
CPT/HCPCS: 71250